=== PATIENT | female | born 1990 | race African-American/Black ===

== ENCOUNTER 2020-06-07 06:49 | Emergency (ER) | payer SELFPAY ==
[2020-06-07 14:12] LABS: SARS-CoV-2 PCR by NAA Not Detected (NotDetected)
== END 2020-06-07 08:15 | disposition home or self-care (01) ==
LOC: ERS 06:49
DX: R05 Cough (principal); R07.9 Chest pain, unspecified; Z20.822 Contact with and (suspected) exposure to COVID-19
CPT/HCPCS: 87635; 99283; U0003; U0005

== ENCOUNTER 2023-10-21 11:57 | Emergency (ER) | payer SELFPAY ==
[2023-10-21 14:03] LABS: Bacteria/HPF 4+ HPF (None Seen); Bilirubin Negative (Negative); Blood, Urine Negative (Negative); CAUTI Indications for Culture Alt mental st,lethar; Clarity Cloudy (Clear); Glucose, Urine (Dipstick) Normal (Negative); Ketone, Urine 10 mg/dL (Negative); Leukocyte 25 Leu/uL (Negative); Nitrite Negative (Negative); Protein, Urine (Dipstick) 30 mg/dL (Neg-Trace); Specific Gravity, Urine 1.036 (1.002-1.036); pH, Urine 5.5 (5.0-9.0)
[2023-10-21 14:04] LABS: Urine Culture Reflex No No
[2023-10-21] MEDS ORDERED: Azithromycin 250 MG TAB ONE (14:47)
[2023-10-21] MEDS ORDERED: cefTRIAXone (ROCEPHIN) 500 MG VIAL ONE (14:47)
[2023-10-21] MEDS ORDERED: Lidocaine 1% PF 5 ML VIAL ONE (14:47)
[2023-10-21 18:58] LABS: Chlamydia by PCR, Vaginal Swab Not Detected (NotDetected); GC by PCR, Vaginal Swab DETECTED (NotDetected)
[2023-10-21 19:13] LABS: Syphilis Antibody Nonreactive (Nonreactive); Syphilis Antibody Index 0.04 S/CO (<1.00 Non-Reactive)
[2023-10-23 19:09] LABS: HIV-1 Quantitative, RNA PCR <20 copies/mL (.)
== END 2023-10-21 14:53 | disposition home or self-care (01) ==
LOC: ERS 11:57
DX: R78.81 Bacteremia (principal); Z11.3 Encounter for screening for infections with a predominantly sexual mode of transmission; F17.210 Nicotine dependence, cigarettes, uncomplicated
CPT/HCPCS: 36415; 81001; 86780; 87491; 87536; 87591; 96372; 99283; J0696